=== PATIENT | female | born 1985 | race African-American/Black ===

== ENCOUNTER 2019-06-06 18:31 | Emergency (ER) | payer MEDICAID ==
[~2019-06-06] VITALS: Ht 162.6 cm; Wt 87.0 kg
[2019-06-06] MEDS ORDERED: IBUPROFEN 600MG TABLET PO STA (19:28)
[2019-06-06] MEDS ORDERED: ALBUTEROL (0.083%) 2.5MG/3ML NEB HHN STA (19:28)
[2019-06-06] MEDS ORDERED: IPRATROPIUM BROMIDE (0.02%) 0.5MG/2.5ML NEB HHN STA (19:28)
[2019-06-06] MEDS ORDERED: ALBUTEROL (0.083%) 2.5MG/3ML NEB ONE (20:04)
[2019-06-06 20:42] VITALS: BP 121/60
== END 2019-06-06 20:56 | disposition home or self-care (01) ==
LOC: ER 18:31
DX: J06.9 Acute upper respiratory infection, unspecified (principal); F17.200 Nicotine dependence, unspecified, uncomplicated; Z88.6 Allergy status to analgesic agent
CPT/HCPCS: 71045; 81025; 94640; 99283; J7611; Z7610